=== PATIENT | male | born 1955 | race Caucasian/White ===

== ENCOUNTER → 2023-06-21 07:18 | Outpatient (REF) | payer OTHER, SELFPAY ==
[2023-06-21 08:43] LABS: Glycohemoglobin (HgbA1c) 6.2 % (4.0-5.6)
[2023-06-21 08:45] LABS: Blood Urea Nitrogen 32 mg/dl (9-20); Calcium 9.7 mg/dl (8.4-10.2); Carbon Dioxide 29 mmol/L (22-30); Chloride 100 mmol/L (98-107); Glucose 106 mg/dl (70-99); Potassium 3.7 mmol/L (3.5-5.1); Sodium 137 mmol/L (135-145)
[2023-06-23 01:18] LABS: Cyclosporine A Results 64.9 ng/mL
== END ==
LOC: REG 07:18
PROVIDERS: ATTENDING PHYSICIAN Orthopaedic Surgery Adult Reconstructive Orthopaedic Surgery; FAMILY PHYSICIAN Nurse Practitioner Acute Care
DX: R73.09 Other abnormal glucose (principal); N18.9 Chronic kidney disease, unspecified; Z94.1 Heart transplant status
CPT/HCPCS: 36415; 80048; 80158; 83036

== ENCOUNTER → 2023-08-17 11:16 | Outpatient (REF) | payer OTHER, SELFPAY ==
[2023-08-17 11:37] LABS: Draw Blood Only RED TOP TUBE
== END ==
LOC: REG 11:16
PROVIDERS: ATTENDING PHYSICIAN Internal Medicine Cardiovascular Disease; FAMILY PHYSICIAN Family Medicine
DX: Z94.1 Heart transplant status (principal); R76.8 Other specified abnormal immunological findings in serum; T86.290 Cardiac allograft vasculopathy; Z48.21 Encounter for aftercare following heart transplant; Z13.6 Encounter for screening for cardiovascular disorders
CPT/HCPCS: 36415

== ENCOUNTER → 2023-11-29 07:54 | Outpatient (REF) | payer OTHER, SELFPAY ==
[2023-11-29 10:37] LABS: Prolactin 8.6 ng/ml (3.7-17.9)
[2023-11-30 11:45] LABS: Cyclosporine A Results 55.6 ng/mL; Sirolimus (Rapamycin) 4.6 ng/mL
== END ==
LOC: REG 07:54
PROVIDERS: ATTENDING PHYSICIAN Internal Medicine Clinical Cardiac Electrophysiology; FAMILY PHYSICIAN Family Medicine
DX: N64.4 Mastodynia (principal); Z94.1 Heart transplant status; T86.290 Cardiac allograft vasculopathy; D84.9 Immunodeficiency, unspecified
CPT/HCPCS: 36415; 80158; 80195; 84146; 84403

== ENCOUNTER → 2023-12-30 09:11 | Outpatient (REF) | payer OTHER, SELFPAY | LOC: WDC 09:11 | PROVIDERS: ATTENDING PHYSICIAN Family Medicine | DX: N64.4 Mastodynia (principal) | CPT/HCPCS: 76642; 77062; 77066 ==

== ENCOUNTER → 2024-11-27 06:37 | Outpatient (REF) | payer OTHER, SELFPAY ==
[2024-11-27 09:37] LABS: Blood Urea Nitrogen 38 mg/dl (9-20); Calcium 9.2 mg/dl (8.4-10.2); Carbon Dioxide 26 mmol/L (22-30); Chloride 107 mmol/L (98-107); Glucose 114 mg/dl (70-99); Potassium 4.0 mmol/L (3.5-5.1); Sodium 140 mmol/L (135-145); eGFR 42.83
[2024-11-29 11:49] LABS: Cyclosporine A Results 63.1 ng/mL
== END ==
LOC: HWLAB 06:37
PROVIDERS: ATTENDING PHYSICIAN Internal Medicine Cardiovascular Disease; FAMILY PHYSICIAN Family Medicine
DX: Z94.1 Heart transplant status (principal); T86.20 Unspecified complication of heart transplant; Z13.6 Encounter for screening for cardiovascular disorders; D84.9 Immunodeficiency, unspecified; I10 Essential (primary) hypertension; E78.2 Mixed hyperlipidemia
CPT/HCPCS: 36415; 80048; 80158; 80195

== ENCOUNTER → 2025-02-13 06:46 | Outpatient (REF) | payer OTHER, SELFPAY ==
[2025-02-13 10:05] LABS: HDL Cholesterol 35 mg/dl; LDL Cholesterol, Calculated 60 mg/dl; Very Low Density Lipoprotein 32 mg/dl (0-30)
== END ==
LOC: HWLAB 06:46
PROVIDERS: ATTENDING PHYSICIAN Internal Medicine Cardiovascular Disease; FAMILY PHYSICIAN Family Medicine
DX: Z94.1 Heart transplant status (principal); T86.20 Unspecified complication of heart transplant; D84.9 Immunodeficiency, unspecified; E78.2 Mixed hyperlipidemia
CPT/HCPCS: 36415; 80061